=== PATIENT | male | born 1990 | race Caucasian/White ===

== ENCOUNTER 2021-11-21 23:12 | Emergency (ER) | payer BC, OTHER ==
[2021-11-21] MEDS ORDERED: Ibuprofen 600 MG Tab PO ONE (23:24)
[2021-11-21] MEDS ORDERED: Acetaminophen 500 MG Tab PO ONE (23:24)
[2021-11-21] MEDS ORDERED: Ondansetron 4 MG Tab.DIS PO ONE (23:24)
--- NOTE | 2021-11-21 23:25 | EDM.PDOC ---
ED HPI GENERAL MEDICAL PROBLEM - General Chief Complaint: General Stated Complaint: SLIPPED ON ICE, HIT HEAD Time Seen by Provider: 11/21/21 23:13 Source of Information: Reports: Patient History Limitations: Reports: No Limitations - History of Present Illness INITIAL COMMENTS - FREE TEXT/NARRATIVE: 31-year-old male with no relevant past medical history presents for fall. Jacinda ent slipped on ice and fell on his buttocks and hit the back of his head. He thinks he may have had momentary LOC but he is uncertain. He was able to get up on his own. He notes Pain in the back of his head as well as dizziness andFeeling nauseated. No vomiting Head Pain Score (Numeric/FACES): 8 - Related Data Allergies Allergy/AdvReac Type Severity Reaction Status Date / Time No Known Allergies Allergy Verified 11/21/21 23:22 ED ROS GENERAL - Review of Systems Review Of Systems: Comprehensive ROS is negative, except as noted in HPI. ED EXAM, GENERAL - Physical Exam Exam: See Below Exam Limited By: No Limitations General Appearance: Alert, WD/WN, No Apparent Distress Eye Exam: Bilateral Eye: EOMI, PERRL Ears: Hearing Grossly Normal Throat/Mouth: Normal Voice, No Airway Compromise Head: Normocephalic, Other (small hematoma to occipital scalp) Neck: Normal Inspection, Non-Tender Respiratory/Chest: No Respiratory Distress, No Accessory Muscle Use Cardiovascular: Normal Peripheral Pulses, Regular Rate, Rhythm Extremities: Normal Inspection Neurological: Alert, Oriented, CN II-XII Intact, Normal Cognition, Normal Gait, No Motor/Sensory Deficits Psychiatric: Normal Affect, Normal Mood Skin Exam: Warm, Dry, Intact, Normal Color Course - Vital Signs Last Recorded V/S: Last Vital Signs Temp 97.8 F 11/21/21 23:22 Pulse 88 11/22/21 00:23 Resp 16 11/22/21 00:23 BP 129/90 11/22/21 00:23 Pulse Ox 95 11/22/21 00:23 - Orders/Labs/Meds Orders: Active Orders 24 hr Category Date Time Status Head wo Cont [CT] Stat Exams 11/21/21 23:24 Taken Meds: Medications Discontinued Medications Generic Name Dose Route Start Last Admin Trade Name Freq PRN Reason Stop Dose Admin Acetaminophen 1,000 mg 11/21/21 23:24 11/21/21 23:28 Acetaminophen 500 Mg Tab PO 11/21/21 23:25 1,000 mg ONETIME ONE Administration Ibuprofen 600 mg 11/21/21 23:24 11/21/21 23:27 Ibuprofen 600 Mg Tab PO 11/21/21 23:25 Not Given ONETIME ONE Ondansetron HCl 4 mg 11/21/21 23:24 11/21/21 23:28 Ondansetron 4 Mg Tab.Dis PO 11/21/21 23:25 4 mg ONETIME ONE Administration - Re-Assessments/Exams Free Text/Narrative Re-Assessment/Exam: 11/22/21 00:[address] normal; will d/c home Departure - Departure Time of Disposition: 00:53 Disposition: Home, Self-Care 01 Condition: Good Clinical Impression: Closed head injury Qualifiers: Encounter type: initial encounter Qualified Code(s): S09.90XA - Unspecified injury of head, initial encounter - Discharge Information Instructions: Head Injury, Adult Referrals: PCP,None [Primary Care Provider] - Forms: ED Department Discharge Additional Instructions: Your head CT was unremarkable. You are likely experiencing symptoms of a conc ussion. You should take it easy for the next couple of days. You can take Tylenol and/or Motrin for relief of headache. The following information is given to patients seen in the emergency department who are being discharged to home. This information is to outline your options for follow-up care. We provide all patients seen in our emergency department with a follow-up referral. The need for follow-up, as well as the timing and circumstances, are variable depending upon the specifics of your emergency department visit. If you don't have a primary care physician on staff, we will provide you with a referral. We always advise you to contact your personal physician following an emergency department visit to inform them of the circumstance of the visit and for follow-up with them and/or the need for any referrals to a consulting specialist. The emergency department will also refer you to a specialist when appropriate. This referral assures that you have the opportunity for follow-up care with a specialist. All of these measure are taken in an effort to provide you with optimal care, which includes your follow-up. Under all circumstances we always encourage you to contact your private physician who remains a resource for coordinating your care. When calling for follow-up care, please make the office aware that this follow-up is from your recent emergency room visit. If for any reason you are refused follow-up, please contact the [facility] Emergency Department at and asked to speak to the emergency department charge nurse. Please follow up with your primary care physician. If you do not have a primary care physician, see below: [facility] [address], [place] [id number] [facility] [address] [place] [address] [facility] [address] [place] [address] Sepsis Event Note (ED) - Focused Exam Vital Signs: Vital Signs Temp Pulse Resp BP Pulse Ox 11/22/21 00:23 88 16 129/90 95 11/21/21 23:22 97.8 F 96 16 149/98 H 96 - My Orders Last 24 Hours: My Active Orders 11/21/21 23:24 Head wo Cont [CT] Stat - Assessment/Plan Last 24 Hours: My Active Orders 11/21/21 23:24 Head wo Cont [CT] Stat
--- NOTE | 2021-11-22 00:52 | CT ---
Indication: Fall on ice, loss of consciousness Technique: Nonenhanced axial CT imaging through the head. Sagittal and coronal reconstructions are provided. Comparison: None Findings: There is no evidence of intracranial hemorrhage or cerebral edema. Hendrix-white matter differentiation is preserved. The ventricles are normal in size. The basal cisterns are patent. The calvarium is intact. The visualized paranasal sinuses and mastoid air cells are aerated. Impression: No acute intracranial process. Please note that all CT scans at this facility use dose modulation, iterative reconstruction, and/or weight-based dosing when appropriate to reduce radiation dose to as low as reasonably achievable. Dictated by Dandy Schaefer MD @ 11/22/2021 12:51:32 AM (Electronically Signed)
== END 2021-11-22 01:00 | disposition home or self-care (01) ==
LOC: MW.ED 23:12
DX: S00.03XA Contusion of scalp, initial encounter (principal); W00.0XXA Fall on same level due to ice and snow, initial encounter
CPT/HCPCS: 70450; 99283; A9270

== ENCOUNTER 2021-12-25 03:18 | Day surgery (SDC) | payer BC ==
[2021-12-25] MEDS ORDERED: Sodium Chloride 0.9% 1,000 ML IV ONE (03:39)
[2021-12-25] MEDS ORDERED: Ondansetron 4 MG/2 ML SDV IVPUSH ONE (03:39)
[2021-12-25] MEDS ORDERED: Morphine 4 MG/ML VIAL IVPUSH ONE ×2 (03:39→05:13)
[2021-12-25 04:19] LABS: BLOOD UREA NITROGEN,BUN 9 mg/dL (7.0-18.0); CARBON DIOXIDE,CO2 28.7 mmol/L (21.0-32.0); CHLORIDE,CL 102 mmol/L (98-107); GLUCOSE RANDOM 112 mg/dL (74-106); LIPASE 89 U/L (73-393); POTASSIUM,K 3.7 mmol/L (3.5-5.1); SODIUM,NA 139 mmol/L (136-148)
[2021-12-25] MEDS ORDERED: Iopamidol 755 Mg/ML 100 ML Bottle IVPUSH ONE (04:33)
[2021-12-25] MEDS ORDERED: Piperacillin/Tazobactam 4.5 GM in Sodium Chloride 0.9% 100 ML IV ONE (05:44)
[2021-12-25] MEDS: Lactated Ringers 1,000 ML IV SCH ×2 (07:34→15:26)
[2021-12-25] MEDS ORDERED: Bupivacaine 0.5% 10 ML SDV ONE (07:46)
[2021-12-25] MEDS ORDERED: Dexamethasone 4 MG/ML 5 ML MDV ONE (08:18)
[2021-12-25] MEDS ORDERED: Lidocaine 2% 5 ML SDV ONE ×2 (08:18→09:07)
[2021-12-25] MEDS ORDERED: Propofol 200 MG/20 ML SDV ONE (08:19)
[2021-12-25] MEDS ORDERED: Midazolam 1 MG/ML 2 ML SDV ONE (08:19)
[2021-12-25] MEDS ORDERED: fentaNYL 100 MCG/2 ML SDV ONE (08:19)
[2021-12-25] MEDS ORDERED: Rocuronium Bromide 50 MG/5 ML Syringe ONE (08:19)
[2021-12-25] MEDS ORDERED: Ketamine 500 mg/10 ML MDV ONE (09:07)
[2021-12-25] MEDS ORDERED: Ondansetron 4 MG/2 ML SDV ONE (09:40)
[2021-12-25] MEDS ORDERED: Ketorolac 30 MG/ML SDV ONE (09:40)
[2021-12-25] MEDS ORDERED: Sugammadex Sodium 200 MG/2 ML VIAL ONE (09:48)
[2021-12-25] MEDS ORDERED: Lactated Ringers 1,000 ML IV SCH (10:15)
[2021-12-25] MEDS ORDERED: Naloxone 0.4 MG/ML SDV IVPUSH PRN (10:20)
[2021-12-25] MEDS ORDERED: Morphine 2 MG/ML SYRINGE IVPUSH PRN ×2 (10:20→10:34)
[2021-12-25] MEDS ORDERED: Ondansetron 4 MG/2 ML SDV IVPUSH PRN (10:20)
[2021-12-25] MEDS ORDERED: Metoclopramide 10 MG/2 ML SDV IVPUSH PRN (10:20)
[2021-12-25] MEDS ORDERED: fentaNYL 100 MCG/2 ML SDV IVPUSH PRN (10:20)
[2021-12-25] MEDS ORDERED: HYDROmorphone 1 MG/ML Syringe IVPUSH PRN (10:20)
[2021-12-25] MEDS ORDERED: Albuterol 0.083% 2.5 MG/3 ML Neb Soln NEB PRN (10:20)
[2021-12-25] MEDS: Acetaminophen/HYDROcodone 325-5 MG Tab PO PRN ×2 (11:42→21:05)
[2021-12-25] MEDS: Piperacillin/Tazobactam 4.5 GM in Sodium Chloride 0.9% 100 ML IV SCH ×2 (13:15→21:09)
[2021-12-25] MEDS ORDERED: Piperacillin/Tazobactam 4.5 GM AdvVial ONE (20:54)
[2021-12-26] MEDS: Acetaminophen/HYDROcodone 325-5 MG Tab PO PRN ×2 (01:11→09:58)
[2021-12-26] MEDS: Lactated Ringers 1,000 ML IV SCH ×2 (01:53→10:00)
== END 2021-12-26 11:28 | disposition home or self-care (01) ==
LOC: MW.ED 03:18 → MW.SDS 05:53 → MW.MS 11:23 → MW.SDS 12-26 11:28
PROVIDERS: ATTEND Surgery
DX: K35.30 Acute appendicitis with localized peritonitis, without perforation or gangrene (principal); F17.210 Nicotine dependence, cigarettes, uncomplicated
CPT/HCPCS: 36415; 74177; 80053; 83690; 85025; 96374; 96375; 96376; 99285; A9270; J0131; J0330; J1100; J1885; J2250; J2270; J2405; J2543; J2704; J3490; J7030; J7120; Q9967; 00840; J3010

== ENCOUNTER 2023-02-08 23:43 | Emergency (ER) | payer BC ==
[2023-02-09] MEDS ORDERED: Ibuprofen 800 MG Tab PO ONE (02:10)
[2023-02-09] MEDS ORDERED: Ondansetron 4 MG Tab.DIS PO STA (02:10)
[2023-02-09] MEDS ORDERED: Levofloxacin/Dextrose 5%-Water 750 MG in Premix Bag 1 BAG IV ONE (03:02)
[2023-02-09] MEDS ORDERED: Calcium Carbonate 500 MG Tab.Chew PO ONE (03:29)
[2023-02-09 04:32] LABS: CARBON DIOXIDE,CO2 25.3 mmol/L (21.0-32.0); POTASSIUM,K 3.9 mmol/L (3.5-5.1)
== END 2023-02-09 05:54 | disposition home or self-care (01) ==
LOC: MW.ED 23:43
DX: N20.2 Calculus of kidney with calculus of ureter (principal); Z79.899 Other long term (current) drug therapy
CPT/HCPCS: 36415; 74176; 80053; 81001; 83605; 83690; 85025; 87040; 87086; 96365; 96366; 99284; A9270; J1956

== ENCOUNTER 2023-02-14 17:26 | Emergency (ER) | payer BC ==
[2023-02-14] MEDS ORDERED: Sodium Chloride 0.9% 10 ML Syringe FLUSH PRN (17:30)
[2023-02-14] MEDS ORDERED: Sodium Chloride 0.9% 2.5 ML Syringe FLUSH PRN (17:30)
[2023-02-14] MEDS ORDERED: Ketorolac 30 MG/ML SDV IVPUSH ONE (17:32)
[2023-02-14] MEDS ORDERED: Sodium Chloride 0.9% 1,000 ML IV ONE (17:32)
[2023-02-14] MEDS ORDERED: Ondansetron 4 MG/2 ML SDV IVPUSH ONE (17:32)
[2023-02-14 18:11] LABS: CARBON DIOXIDE,CO2 25.7 mmol/L (21.0-32.0); POTASSIUM,K 4.1 mmol/L (3.5-5.1)
[2023-02-14] MEDS ORDERED: Morphine 4 MG/ML Syringe IVPUSH ONE (19:20)
== END 2023-02-14 20:45 | disposition home or self-care (01) ==
LOC: MW.ED 17:26
DX: N13.2 Hydronephrosis with renal and ureteral calculous obstruction (principal); Z72.0 Tobacco use
CPT/HCPCS: 36415; 74176; 80053; 81001; 83690; 85025; 87086; 96361; 96374; 96375; 99284; J1885; J2270; J2405; J3490; J7030